=== PATIENT | male | born 1985 | race Hispanic/Latino ===

== ENCOUNTER 2024-06-16 21:59 | Emergency (ER) | payer SELFPAY ==
[2024-06-16] MEDS ORDERED: IBUPROFEN 400 MG TAB ONE (22:40)
[2024-06-16] MEDS ORDERED: HYDROCODONE/APAP 7.5/325 MG TAB ONE (22:40)
--- NOTE | 2024-06-16 23:17 | EDPHYS ---
Physician Documentation [facility] Name: Win Anderson Age: 38 yrs Sex: Male : 1985 Arrival Date: 06/16/2024 Time: 21:59 Bed DX3 Private MD: ED Physician Bj Otero HPI: 06/16 22:31 This 38 yrs old Male presents to ER via Unassigned with complaints of Abscess cp - Tooth. 22:31 the patient presents with a swollen area of the left facial cheek. Onset: The cp symptoms/episode began/occurred 2 day(s) ago. Possible cause(s):. Associated signs and symptoms: Pertinent positives: left upper jaw dental pain, Pertinent negatives: discharge, drainage, fever. Severity of symptoms: in the emergency department the symptoms are unchanged, despite home interventions. Historical: - Allergies: 22:31 No Known Allergies; vc1 - Home Meds: 22:31 Lisinopril Oral [Active]; vc1 - PMHx: 22:31 Hypertensive disorder; vc1 - PSHx: 22:31 None; vc1 - Immunization history:: Adult Immunizations up to date. - Infectious Disease History:: Denies. - Social history:: Smoking status: Reported history of juuling and/or vaping. Patient/guardian denies using tobacco, but has a distant history of tobacco abuse. ROS: 22:33 Constitutional: Negative for body aches, chills, fever, poor PO intake, cp 22:33 ENT: Positive for dental pain, Negative for drainage from ear(s), ear pain, sore cp throat, difficulty swallowing, difficulty handling secretions, 22:33 Respiratory: Negative for cough, shortness of breath, wheezing, 22:33 Eyes: Negative for injury, pain, redness, and discharge, cp 22:33 Abdomen/GI: Negative for abdominal pain, nausea, vomiting, and diarrhea, 22:33 Neuro: Negative for altered mental status, dizziness, headache, weakness, 22:33 All other systems are negative, Exam: 22:35 Constitutional: The patient appears in no acute distress, alert, awake, non-toxic, well cp developed, well nourished, uncomfortable, 22:35 Head/face: Noted is swelling, that is mild, of the left cheek, cp 22:35 Eyes: Periorbital structures: appear normal, Conjunctiva: normal, no exudate, no injection, Lids and lashes: appear normal, bilaterally, 22:35 ENT: External ear(s): are unremarkable, Nose: is normal, Mouth: Lips: moist, Oral mucosa: pink and intact, moist, Tongue: is normal, abscess, is not appreciated, Posterior pharynx: Airway: no evidence of obstruction, patent, Dental exam: abscess, is not appreciated, dental caries, that is moderate, diffusely, gum swelling, that is mild, specifically in the upper left first molar (#14), pain, that is moderate, specifically in the upper left first molar (#14), Voice: is normal, 22:35 Neck: ROM/movement: is normal, is supple, without pain, no range of motions limitations, no meningismus, no nuchal rigidity, 22:35 Chest/axilla: Inspection: normal, 22:35 Cardiovascular: Rate: normal, Rhythm: regular, cp 22:35 Respiratory: the patient does not display signs of respiratory distress, Respirations: normal, no use of accessory muscles, no retractions, labored breathing, is not present, Breath sounds: are clear throughout, no decreased breath sounds, 22:35 Abdomen/GI: Inspection: abdomen appears normal, 22:35 Neuro: Orientation: to person, place \T\ time. Mentation: is normal, Vital Signs: 22:30 Weight 69.85 kg; Height 5 ft. 8 in. ; Pain 10/10; vc1 22:32 BP 140 / 104; Pulse 82; Resp 16; Temp 98.6; Pulse Ox 100% ; vc1 22:30 Body Mass Index 23.42 (69.85 kg, 172.72 cm) vc1 22:30 Pain Scale: Adult vc1 MDM: 22:30 Medical Screening Exam initiated cp 22:35 Differential diagnosis: abscess, cellulitis, osteomyelitis. 23:15 Data reviewed: vital signs, nurses notes, and as a result, I will discharge patient. cp 23:15 I considered the following discharge prescriptions or medication management in the emergency department Medications were administered in the Emergency Department. See MAR. Care significantly affected by the following chronic conditions: Hypertension. Counseling: I had a detailed discussion with the patient and/or guardian regarding the historical points, exam findings, and any diagnostic results supporting the discharge/admit diagnosis, the need for outpatient follow up, for definitive care, a dentist. Response to treatment: the patient's symptoms have mildly improved after treatment, and as a result, I will discharge patient. Administered Medications: 22:42 Drug: Hydrocodone-Acetaminophen PO (7.5 mg-325 mg) 1 tabs PO once; RASS on ADMIN: vc1 Combtv4, Very Agttd3, Agttd2, Rstlss1, AlertClm0, Drwsy-1, Lt Sdtn-2, Mod Sdtn-3, Dp Sdtn-4, UnArsble-5 Route: PO; 06/17 00:16 Follow up: Response: No adverse reaction; Marked relief of symptoms; Pain is decreased vc1 06/16 22:42 Drug: Ibuprofen PO 800 mg PO once Route: PO; vc1 06/17 00:15 Follow up: Response: No adverse reaction; Marked relief of symptoms vc1 06/16 22:42 Drug: Clindamycin PO 300 mg PO once Route: PO; vc1 06/17 00:15 Follow up: Response: No adverse reaction; Marked relief of symptoms vc1 Disposition: 18:16 Chart complete. cp 19:45 Co-signature as Attending Physician, Bj Otero MD I agree with the assessment sp4 and plan of care. I reviewed the patient's care provided by the Advanced Practice Provider and agree with the diagnosis and treatment plan. Disposition Summary: 06/16/24 23:16 Discharge Ordered Notes: Location: Home cp Problem: new cp Symptoms: have improved cp Condition: Stable cp Diagnosis - Disorder of teeth and supporting structures, unspecified cp Followup: cp - With: Private Physician - When: 2 - 3 days - Reason: Recheck today's complaints Discharge Instructions: - Discharge Summary Sheet cp - Dental Abscess cp - Dental Pain cp Forms: - Medication Reconciliation Form cp - Antibiotic Education cp - Prescription Opioid Use cp - Patient Portal Instructions cp - Leadership Thank You Letter cp Prescriptions: - Clindamycin HCl 300 mg Oral Capsule - take 1 capsule ORAL route every 6 hours for 10 days; 40 capsule; Refills: 0, cp Product Selection Permitted - Ibuprofen 800 mg Oral Tablet - take 1 tablet ORAL route every 8 hours As needed take with food; 30 tablet; cp Refills: 0, Product Selection Permitted Signatures: Blair Munoz PA PA cp Calcote, Vanessa, YAMILKA RN vc1 Bj Otero MD MD sp4
--- NOTE | 2024-06-16 23:17 | ER ---
Nurse's Notes [facility] Name: Win Anderosn Age: 38 yrs Sex: Male : 1985 Arrival Date: 06/16/2024 Time: 21:59 Bed DX3 Private MD: Diagnosis: Disorder of teeth and supporting structures, unspecified Presentation: 06/16 22:30 Chief complaint: Patient states: left upper tooth pain. Coronavirus screen: Client vc1 denies travel out of the [place] in the last 14 days. At this time, the client does not indicate any symptoms associated with coronavirus-19. Ebola Screen: Patient negative for fever greater than or equal to 101.5 degrees Fahrenheit, and additional compatible Ebola Virus Disease symptoms Patient denies exposure to infectious person. Patient denies travel to an Ebola-affected area in the 21 days before illness onset. No symptoms or risks identified at this time. Initial Sepsis Screen: Does the patient meet any 2 criteria? No. Patient's initial sepsis screen is negative. Does the patient have a suspected source of infection? No. Patient's initial sepsis screen is negative. Risk Assessment: Do you want to hurt yourself or someone else? Patient reports no desire to harm self or others. Onset of symptoms was June 15, 2024. Care prior to arrival: Medication(s) given: Motrin, 400 mg. 22:30 Method Of Arrival: Ambulatory vc1 22:30 Acuity: GENEVA 4 vc1 Triage Assessment: 06/17 00:12 General: Appears in no apparent distress. Behavior is calm, cooperative, appropriate vc1 for age. Pain: Complains of pain in upper left first molar (#14) Pain does not radiate. Pain currently is 8 out of 10 on a pain scale. EENT: No deficits noted. No signs and/or symptoms were reported regarding the EENT system. Neuro: Level of Consciousness is awake, alert, obeys commands, Oriented to person, place, time, situation, Appropriate for age. Cardiovascular: No deficits noted. Respiratory: Airway is patent Respiratory effort is even, unlabored, Respiratory pattern is regular, symmetrical, Breath sounds are clear bilaterally. GI: No deficits noted. No signs and/or symptoms were reported involving the gastrointestinal system. : No deficits noted. No signs and/or symptoms were reported regarding the genitourinary system. Derm: Skin is intact, is healthy with good turgor, Skin is dry, Skin is pink, warm \T\ dry. normal. Musculoskeletal: Circulation, motion, and sensation intact. Range of motion: intact in all extremities. Historical: - Allergies: 12 22:31 No Known Allergies; vc1 - Home Meds: 22:31 Lisinopril Oral [Active]; vc1 - PMHx: 22:31 Hypertensive disorder; vc1 - PSHx: 22:31 None; vc1 - Immunization history:: Adult Immunizations up to date. - Infectious Disease History:: Denies. - Social history:: Smoking status: Reported history of juuling and/or vaping. Patient/guardian denies using tobacco, but has a distant history of tobacco abuse. Screenin:32 [facility] ED Fall Risk Assessment (Adult) History of falling in the last 3 months, vc1 including since admission No falls in past 3 months (0 pts) Confusion or Disorientation No (0 pts) Intoxicated or Sedated No (0 pts) Impaired Gait No (0 pts) Mobility Assist Device Used No (0 pt) Altered Elimination No (0 pt) Score/Fall Risk Level 0 - 2 = Low Risk Oriented to surroundings, Maintained a safe environment, Educated pt \T\ family on fall prevention, incl call for assistance when getting out of bed. Abuse screen: Denies threats or abuse. Nutritional screening: No deficits noted. Tuberculosis screening: No symptoms or risk factors identified. Vital Signs: 22:30 Weight 69.85 kg; Height 5 ft. 8 in. ; Pain 10/10; vc1 22:32 BP 140 / 104; Pulse 82; Resp 16; Temp 98.6; Pulse Ox 100% ; vc1 22:30 Body Mass Index 23.42 (69.85 kg, 172.72 cm) vc1 22:30 Pain Scale: Adult vc1 ED Course: 22:01 Patient arrived in ED. ra3 22:05 Blair Munoz PA is PHCP. cp 22:05 Bj Otero MD is Attending Physician. cp 22:31 Triage completed. vc1 22:32 Arm band placed on right wrist. vc1 06/17 00:12 No provider procedures requiring assistance completed. Patient did not have IV access vc1 during this emergency room visit. 00:14 seen in diagnostic chair. Provided Education on: tylenol and ibuprofen for pain. vc1 Administered Medications: 06/16 22:42 Drug: Hydrocodone-Acetaminophen PO (7.5 mg-325 mg) 1 tabs PO once; RASS on ADMIN: vc1 Combtv4, Very Agttd3, Agttd2, Rstlss1, AlertClm0, Drwsy-1, Lt Sdtn-2, Mod Sdtn-3, Dp Sdtn-4, UnArsble-5 Route: PO; 06/17 00:16 Follow up: Response: No adverse reaction; Marked relief of symptoms; Pain is decreased vc1 06/16 22:42 Drug: Ibuprofen PO 800 mg PO once Route: PO; vc1 06/17 00:15 Follow up: Response: No adverse reaction; Marked relief of symptoms vc1 06/16 22:42 Drug: Clindamycin PO 300 mg PO once Route: PO; vc1 06/17 00:15 Follow up: Response: No adverse reaction; Marked relief of symptoms vc1 Medication: 06/16 22:32 VIS not applicable for this client. vc1 Outcome: 23:16 Discharge ordered by MD. duke 06/17 00:14 Discharged to home ambulatory, with significant other, vc1 Condition: good Discharge instructions given to patient, Instructed on discharge instructions, follow up and referral plans. medication usage, Demonstrated understanding of instructions, follow-up care, medications, Prescriptions given X 2, 00:15 Patient left the ED. vc1 Signatures: Blair Munoz PA PA cp Calcote, Vanessa, RN RN vc1 Yuni Persaud ra3
[2024-06-17 00:23] VITALS: BP 140/104; TEMP 98.6; O2SAT 100
== END 2024-06-17 00:15 | disposition home or self-care (01) ==
LOC: ER 21:59
DX: K08.89 Other specified disorders of teeth and supporting structures (principal); R68.84 Jaw pain
CPT/HCPCS: 99283